=== PATIENT | female | born 1980 | race Caucasian/White ===

== ENCOUNTER 2016-08-23 08:35 | Emergency (ER) | payer OTHER | END 2016-08-23 12:43 | disposition home or self-care (01) | LOC: ER 08:35 | DX: M54.12 Radiculopathy, cervical region (principal); J32.9 Chronic sinusitis, unspecified; F41.9 Anxiety disorder, unspecified; G43.909 Migraine, unspecified, not intractable, without status migrainosus; F17.210 Nicotine dependence, cigarettes, uncomplicated; Z98.51 Tubal ligation status; Z88.2 Allergy status to sulfonamides; Z88.6 Allergy status to analgesic agent | CPT/HCPCS: 36415; 70551 ==